=== PATIENT | female | born 1960 | race Caucasian/White ===

== ENCOUNTER → 2016-06-22 | Outpatient (CLI) | payer OTHER ==
[~2016-06-22] MED LIST: ATOR40TA PO; ESOM1CAP5 PO; NEXI40CA PO; SIMV80TA PO
--- NOTE | 2016-06-22 10:39 | REPMRS ---
Patient History The patient states she has not had a clinical breast exam in over a year. Patient is postmenopausal. No known family history of cancer. Took estrogen for 3 years. Digital Woman Screen Mammo: June 22, 2016 - Exam #: [id number] Bilateral CC and MLO view(s) were taken. Technologist: Marion Hernandez, Technologist Prior study comparison: June 10, 2015, digital woman screen mammo performed at [facility] to [facility]. July 16, 2013, digital woman screen mammo performed at [facility]. April 25, 2012, digital woman screen mammo performed at [facility] to [facility]. FINDINGS: There are scattered fibroglandular densities. There has been no change in the appearance of the mammogram from the prior studies. An area of asymmetric breast parenchymal density is again seen in the right breast unchanged from multiple prior studies. There is no interval development of dominant mass, architectural distortion, or clustered microcalcification suggestive of malignancy. ASSESSMENT: BI-RADS/ACR category 1 mammogram. Negative. Recommendation Routine screening mammogram in 1 year (for women over age 40). This mammogram was interpreted with the aid of an FDA-approved computer-aided dectection system. Electronically Signed By: Omari Chavez MD 06/22/16 1038
== END ==
LOC: M WHC 07:50
PROVIDERS: ATTEND Internal Medicine
DX: Z12.31 Encounter for screening mammogram for malignant neoplasm of breast (principal)

== ENCOUNTER 2016-06-28 10:12 | Emergency (ER) | payer OTHER ==
[~2016-06-28] VITALS: Ht 157.5 cm; Wt 90.3 kg
[2016-06-28] MEDS ORDERED: MULT1TAB10 PO (10:26)
[2016-06-28] MEDS ORDERED: ATOR40TA PO (10:26)
[2016-06-28] MEDS ORDERED: ASPIRIN 81 MG CHEW TABLET PO ONE (11:15)
[2016-06-28 11:21] LABS: ANION GAP 9 MEQ/L (8-16); BLOOD UREA NITROGEN 18 MG/DL (7-18); CALCIUM LEVEL 8.8 MG/DL (8.5-10.1); CARBON DIOXIDE LEVEL 26 MEQ/L (21-32); CHLORIDE LEVEL 107 MEQ/L (98-107); CREATININE FOR GFR 0.74 MG/DL (0.55-1.02); GLOMERULAR FILTRATION RATE > 60.0 (>51); GLUCOSE, FASTING 126 MG/DL (70-105); SODIUM LEVEL 142 MEQ/L (136-145)
[2016-06-28 11:23] LABS: BASO % 0.6 % (0.0-1.0); EOS # 0.3 K/mm3 (0.0-0.50); EOS % 3.3 % (0.0-3.0); LARGE UNSTAINED CELL # 0.2 K/mm3 (0.0-0.4); LARGE UNSTAINED CELL % 1.9 % (0.0-4.0); LYMPH # 2.3 K/mm3 (1.5-4.5); LYMPH % 25.2 % (24.0-44.0); MEAN CORPUSCULAR HEMOGLOBIN 32.6 pg (27.0-33.0); MEAN CORPUSCULAR HGB CONC 34.4 g/dl (32.0-36.5); MEAN CORPUSCULAR VOLUME 94.8 fl (80.0-96.0); MONO # 0.6 K/mm3 (0.0-0.8); MONO % 6.8 % (0.0-5.0); NEUTROPHILS # 5.2 K/mm3 (1.8-7.7); NEUTROPHILS % 62.2 % (36.0-66.0); PLATELET COUNT, AUTOMATED 280 k/mm3 (150-450); WHITE BLOOD COUNT 8.4 K/mm3 (4.0-10.0)
[2016-06-28 11:31] LABS: ALBUMIN 3.5 GM/DL (3.2-5.2); ALBUMIN/GLOBULIN RATIO 0.97 (1.00-1.93); BILIRUBIN,DIRECT 0.1 MG/DL (0.0-0.2); BILIRUBIN,TOTAL 0.3 MG/DL (0.2-1.0); FREE T4 0.83 NG/DL (0.76-1.46); TOTAL PROTEIN 7.1 GM/DL (6.4-8.2)
--- NOTE | 2016-06-28 11:56 | REP ---
Chest x-ray: Two views. History: Chest pain. Findings: EKG monitoring electrodes overlie the chest. No comparison views. Heart is mildly prominent in size with cardiothoracic ratio 13.6 cm over 25.9 cm. There is some right lower lobe plate-like atelectasis and right middle lobe plate-like atelectasis visible. The lungs are otherwise well inflated and clear. Pleural angles are sharp. The aorta is somewhat tortuous. No significant bony abnormality is seen. No infiltrate is seen. Impression: Right middle lobe and right lower lobe plate-like atelectasis. Mildly enlarged heart. Otherwise no active disease. Signed by Sean Chavez MD 06/28/2016 01:14 P
[2016-06-28 16:52] VITALS: BP 117/70
--- NOTE | 2016-06-28 20:33 | ECGEPIP ---
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
--- NOTE | 2016-06-28 20:42 | ECGEPIP ---
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
== END 2016-06-28 17:06 | disposition home or self-care (01) ==
LOC: M ED 11:07
DX: R07.9 Chest pain, unspecified (principal); E78.5 Hyperlipidemia, unspecified; K21.9 Gastro-esophageal reflux disease without esophagitis

== ENCOUNTER → 2018-06-02 | Outpatient (CLI) | payer BC ==
[~2018-06-02] MED LIST changes: -ATOR40TA PO; +ATOR40TA75 PO; +MULT1TAB10 PO; -SIMV80TA PO; +SIMV80TA13 PO
--- NOTE | 2018-06-02 12:10 | REP ---
Chest two views HISTORY: Cough Comparison: 06/28/2016 Linear density is present in the right middle lobe consistent with scar. The left lung is clear. The heart is normal in size. The pulmonary vasculature is normal in appearance. The bony structure is intact. IMPRESSION: Right middle lobe scarring. Electronically Signed by Renato Chavez MD 06/02/2018 12:01 P
== END ==
LOC: M WUC 10:49
PROVIDERS: ATTEND Internal Medicine
DX: J98.4 Other disorders of lung (principal); R05 Cough

== ENCOUNTER → 2018-06-20 | Outpatient (CLI) | payer BC ==
--- NOTE | 2018-06-20 10:44 | REPMRS ---
Patient History The patient states she has not had a clinical breast exam in over a year. Patient is postmenopausal. No known family history of cancer. Took estrogen for 3 years. Taking unspecified hormones for 1 month. Digital Woman Screen Mammo: June 20, 2018 - Exam #: [id number] Bilateral CC and MLO view(s) were taken. Technologist: Christine Diaz, Technologist Prior study comparison: June 22, 2016, digital woman screen mammo performed at [facility]. June 10, 2015, digital woman screen mammo performed at [facility] to [facility]. July 16, 2013, digital woman screen mammo performed at [facility] to [facility]. FINDINGS: There are scattered fibroglandular densities. There has been no change in the appearance of the mammogram from the prior studies. There is a mild amount of scattered fibroglandular density which is fairly symmetric. There is no interval development of dominant mass, architectural distortion, or clustered microcalcification suggestive of malignancy. 3-D tomosynthesis shows no additional findings. Assessment: BI-RADS/ACR category 1 mammogram. Negative Mammogram. Recommendation Routine screening mammogram of both breasts in 1 year (for women over age 40). This patient's Lifetime Breast Cancer RIsk is estimated at 7.2 %. This mammogram was interpreted with the aid of an FDA-approved computer-aided dectection system. Electronically Signed By: Omari Chavez MD 06/20/18 6908
== END ==
LOC: M WHC 07:53
PROVIDERS: ATTEND Internal Medicine
DX: Z12.31 Encounter for screening mammogram for malignant neoplasm of breast (principal); Z78.0 Asymptomatic menopausal state; Z92.23 Personal history of estrogen therapy; Z92.29 Personal history of other drug therapy

== ENCOUNTER → 2019-04-23 | Outpatient (CLI) | payer BC ==
[~2019-04-23] MED LIST changes: +LEVO75TA4; +NAPR-885; +OMEP-218
--- NOTE | 2019-04-23 16:41 | REP ---
Five views left knee: 04/23/2019. Indication: Left knee pain. Comparison: None. Findings: There is no acute fracture, subluxation or dislocation. There is narrowing of the medial and lateral compartments more pronounced laterally without significant femoral or tibial spurring. There is minimal spurring of the patella without significant patellofemoral compartment narrowing. No lytic or blastic lesions are present. There is no evidence of significant joint effusion. Impression: No acute osseous pathology of the left knee. Electronically Signed by Gideon Ni DO 04/23/2019 04:03 P
== END ==
LOC: M WUC 15:49
PROVIDERS: ATTEND Internal Medicine
DX: M25.562 Pain in left knee (principal)

== ENCOUNTER 2019-04-24 23:16 | Emergency (ER) | payer BC ==
[~2019-04-24] VITALS: Ht 157.5 cm; Wt 86.4 kg
[~2019-04-24 23:16] MED LIST changes: -LEVO75TA4; -NAPR-885; -OMEP-218
[2019-04-24] MEDS ORDERED: LEVO75TA4 (23:27)
[2019-04-24] MEDS ORDERED: OMEP-218 (23:27)
[2019-04-24] MEDS ORDERED: NAPR-885 (23:27)
--- NOTE | 2019-04-25 00:20 | REPVR ---
PROCEDURE INFORMATION: Exam: US Duplex Left Lower Extremity Veins, Limited Exam date and time: 04/24/2019 11:54 PM Age: 58 years old Clinical indication: Pain; Leg, upper; Left; Additional info: Pain and swelling TECHNIQUE: Imaging protocol: Real-time Duplex ultrasound of the Left Lower Extremity with 2-D humphrey scale, color Doppler flow and spectral waveform analysis with image documentation. Limited exam focused on the left lower extremity veins. COMPARISON: No relevant prior studies available. FINDINGS: Left deep veins: Unremarkable. The common femoral, femoral, proximal profunda femoral and popliteal veins are patent without thrombus. Normal Doppler waveforms. Normal compressibility and/or augmentation response. Left superficial veins: Unremarkable. Saphenofemoral junction is patent without thrombus. Soft tissues: Unremarkable. IMPRESSION: Negative left lower extremity venous duplex exam without evidence of deep venous thrombosis. Electronically signed by: Joaquin Raymond On 04/25/2019 00:19:36 AM
[2019-04-25 01:43] VITALS: BP 138/67
[2019-04-25] MEDS ORDERED: ACETAMINOPHEN 325 MG TAB PO ONE (01:45)
== END 2019-04-25 02:05 | disposition home or self-care (01) ==
LOC: M ED 23:16
DX: S89.92XA Unspecified injury of left lower leg, initial encounter (principal); X50.3XXA Overexertion from repetitive movements, initial encounter; Y92.9 Unspecified place or not applicable; Y93.B1 Activity, exercise machines primarily for muscle strengthening; Y99.9 Unspecified external cause status; E78.5 Hyperlipidemia, unspecified; K21.9 Gastro-esophageal reflux disease without esophagitis; Z79.899 Other long term (current) drug therapy; Z91.040 Latex allergy status

== ENCOUNTER → 2020-08-31 | Outpatient (CLI) | payer BC ==
[~2020-08-31] MED LIST changes: +LEVO75TA4; +NAPR-885; +OMEP-218
--- NOTE | 2020-08-31 16:49 | REPMRS ---
Patient History The patient states she has not had a clinical breast exam in over a year. Patient is postmenopausal. No known family history of cancer. Took estrogen for 4 years. Took unspecified hormones for 1 month. Patient states no breast complaints today. Patient has signed MRS History Sheet. Digital Woman Screen Mammo: August 31, 2020 - Exam #: [id number] Bilateral CC and MLO view(s) were taken. Technologist: Bela Joseph, [employer] Prior study comparison: June 20, 2018, bilateral digital woman screen mammo performed at [facility]. June 22, 2016, digital woman screen mammo performed at [facility]. FINDINGS: There are scattered fibroglandular densities. Screening. Digital screening (2D) mammography was performed bilaterally in the CC and MLO projections. Additionally, breast tomosynthesis (3D mammography) was performed bilaterally in the CC and MLO projections. Todays exam was compared to the prior exams. By history, the patient has no complaints of a palpable breast abnormality or other significant breast complaints. The breasts are unchanged in size and shape. There are no moises-soft tissue densities or spiculated masses. There is no internal architectural distortion. There are no suspicious moises-calcific clusters. Skin thickening or nipple retraction is not present. IMPRESSION: BI-RADS Category 2- Benign Findings. There is no evidence of malignant alteration of the breasts. Followup examination recommended in one year. The Volpara volumetric breast density category is B, there are scattered areas of fibroglandular density. This mammogram was read with the assistance of Oren [id number],an FDA approved computer aided detection system for mammography. The lifetime Tyrer-Cuzick score is 6.8 % Negative x-ray reports should not delay surgical consultation if a dominant or clinically suspicious mass is present. Not all breast cancers can be identified by mammography. Therefore, we recommend that you continue to perform regular breast self-examination and physical examination and then promptly contact your physician of any concerns or changes. Adenosis and dense breasts may obscure an underlying neoplasm. Assessment: BI-RADS/ACR category 2 mammogram. Benign Findings. Recommendation Routine screening mammogram of both breasts in 1 year. Electronically Signed By: Fam Child DO 08/31/20 [id number]
== END ==
LOC: M WHC 16:02
PROVIDERS: ATTEND Internal Medicine
DX: Z12.31 Encounter for screening mammogram for malignant neoplasm of breast (principal)

== ENCOUNTER → 2020-11-15 | Outpatient (CLI) | payer BC ==
--- NOTE | 2020-11-15 18:39 | REP ---
INDICATION: COUGH. COMPARISON: 06/02/2018, 06/28/2016. TECHNIQUE: Two views FINDINGS: The lungs are well inflated. There is some curvilinear scarring in the right middle lobe unchanged. No effusion, lateral pleural thickening, apical scar or pneumothorax. No dense consolidation, parenchymal nodule or mass. Heart is not enlarged. The aorta is tortuous but unchanged. Airway intact some mild levoconvex curve of the lower thoracic and upper lumbar spine. Lateral view shows the spine without compression deformity or destructive lesion. IMPRESSION: 1. Some linear and curvilinear scarring in the right middle lobe without acute cardiopulmonary change. Stable examination. <Electronically signed by Gamal Maria > 11/15/20 [id number]
== END ==
LOC: M WUC 15:37
PROVIDERS: ATTEND Internal Medicine
DX: R05 Cough (principal)

== ENCOUNTER → 2021-01-03 | Outpatient (CLI) | payer BC ==
[~2021-01-03] MED LIST changes: +ISOVUE-370 76% 100ML VIAL As Ordered ONE
--- NOTE | 2021-01-04 06:12 | REP ---
INDICATION: COUGH COMPARISON: Chest x-ray dated 11/15/2020 TECHNIQUE: Axial contrast enhanced images from the thoracic inlet to the upper abdomen with coronal and sagittal reformations using 75 ml Isovue 370 intravenous contrast material. This CT examination was performed using the following dose reduction techniques: Automated exposure control, adjustment of mA and/or kv according to the patient's size, and use of iterative reconstruction technique. FINDINGS: Lung heck are relatively well aerated. There is minimal platelike fibroatelectatic changes in the right middle lobe and linear scarring at the lingula and right base. No acute consolidation. No effusion. No pneumothorax. Tracheobronchial tree is patent. No adenopathy. Thoracic aorta, pulmonary vasculature, and heart/pericardium are normal. Surrounding musculoskeletal structures are intact and without acute process. Limited upper abdomen demonstrates normal bilateral adrenal glands along with hepatosteatosis and cholelithiasis. IMPRESSION: 1. Chronic appearing changes as described above. No acute mediastinal or pleuroparenchymal process. 2. Hepatosteatosis. Cholelithiasis. <Electronically signed by Alejo Jiménez > 01/04/21 0609
== END ==
LOC: M RAD 15:48
PROVIDERS: ATTEND Internal Medicine
DX: R05 Cough (principal); K76.0 Fatty (change of) liver, not elsewhere classified; K80.20 Calculus of gallbladder without cholecystitis without obstruction
CPT/HCPCS: 71260; Q9967

== ENCOUNTER → 2022-01-30 | Outpatient (CLI) | payer BC ==
[~2022-01-30] MED LIST changes: -ISOVUE-370 76% 100ML VIAL As Ordered ONE; +OMEP-173; -OMEP-218
== END ==
LOC: M LABSMTC 09:18
PROVIDERS: ATTEND Anesthesiology
DX: Z01.818 Encounter for other preprocedural examination (principal); Z11.52 Encounter for screening for COVID-19

== ENCOUNTER → 2022-02-01 | Outpatient (CLI) | payer BC ==
[~2022-02-01] MED LIST changes: -LEVO75TA4; +LEVO75TA4 PO; -OMEP-173; +OMEP-173 PO; +prevagen PO
== END ==
LOC: M LABSMTC 10:23
PROVIDERS: ATTEND Anesthesiology
DX: Z01.812 Encounter for preprocedural laboratory examination (principal); Z20.822 Contact with and (suspected) exposure to COVID-19

== ENCOUNTER 2022-02-05 09:11 | Day surgery (SDC) | payer BC ==
[~2022-02-05] VITALS: Ht 157.5 cm; Wt 93.0 kg
[~2022-02-05 09:11] MED LIST changes: +NS 1,000 ML IV ONE
[2022-02-05] MEDS ORDERED: LIDOCAINE 2% 100MG/5ML SDV (FOR ANES.) As Ordered ONE (10:32)
[2022-02-05] MEDS ORDERED: propofoL 200 MG/20 ML VIAL As Ordered ONE ×2 (10:32→10:49)
[2022-02-05 11:25] VITALS: BP 138/72
== END 2022-02-05 11:35 | disposition home or self-care (01) ==
LOC: M OPP 09:11
PROVIDERS: ATTEND Internal Medicine Gastroenterology
DX: Z12.11 Encounter for screening for malignant neoplasm of colon (principal); K64.0 First degree hemorrhoids; D12.6 Benign neoplasm of colon, unspecified; K62.1 Rectal polyp; K57.30 Diverticulosis of large intestine without perforation or abscess without bleeding; Z79.02 Long term (current) use of antithrombotics/antiplatelets; Z79.899 Other long term (current) drug therapy; Z91.040 Latex allergy status; E03.9 Hypothyroidism, unspecified; M13.80 Other specified arthritis, unspecified site; I72.0 Aneurysm of carotid artery

== ENCOUNTER → 2022-05-24 | Outpatient (CLI) | payer BC ==
[~2022-05-24] MED LIST changes: -NS 1,000 ML IV ONE
[2022-05-24 14:11] LABS: CORTISOL AM 10.6 UG/DL (4.3-22.4); ESTRADIOL < 19.0 PG/ML; FOLLICLE STIMULATING HORMONE 46.9 mIU/ML; LUTEINIZING HORMONE 17.1 mIU/ML; PROGESTERONE 0.21 NG/ML
[2022-05-28 17:08] LABS: ESTRONE SERUM 8 pg/mL (0-125); SEX HORMONE BINDING GLOBULIN 49.3 nmol/L (17.3-125.0); TESTOSTERONE FREE (DIRECT) 0.8 pg/mL (0.0-4.2)
== END ==
LOC: M WUC 10:44
PROVIDERS: ATTEND Obstetrics & Gynecology
DX: N95.1 Menopausal and female climacteric states (principal)

== ENCOUNTER → 2022-07-20 | Outpatient (CLI) | payer BC ==
[2022-07-20 20:20] LABS: FOLLICLE STIMULATING HORMONE 18.7 mIU/ML; LUTEINIZING HORMONE 8.6 mIU/ML; PROGESTERONE 0.21 NG/ML
[2022-07-20 20:21] LABS: ESTRADIOL 45.4 PG/ML
== END ==
LOC: M WUC 15:24
PROVIDERS: ATTEND Obstetrics & Gynecology
DX: N95.1 Menopausal and female climacteric states (principal); E34.9 Endocrine disorder, unspecified; R53.83 Other fatigue

== ENCOUNTER → 2022-09-03 | Outpatient (CLI) | payer BC | LOC: M WHC 08:08 | PROVIDERS: ATTEND Internal Medicine | DX: Z12.31 Encounter for screening mammogram for malignant neoplasm of breast (principal) ==

== ENCOUNTER → 2023-02-12 | Outpatient (CLI) | payer BC ==
[2023-02-12 13:20] LABS: HEMATOCRIT 45.1 % (36.0-47.0); HEMOGLOBIN 14.8 g/dl (12.0-15.5); MEAN CORPUSCULAR HEMOGLOBIN 31.8 pg (27.0-33.0); MEAN CORPUSCULAR HGB CONC 32.8 g/dl (32.0-36.5); MEAN CORPUSCULAR VOLUME 96.8 fl (80.0-96.0); PLATELET COUNT, AUTOMATED 287 10^3/uL (150-450); RED BLOOD COUNT 4.66 10^6/uL (4.00-5.40); WHITE BLOOD COUNT 10.6 10^3/uL (4.0-10.0)
[2023-02-12 13:43] LABS: HEMOGLOBIN A1c 6.1 % (4.0-6.0)
[2023-02-12 13:50] LABS: ALBUMIN 3.5 G/DL (3.2-5.2); ALKALINE PHOSPHATASE 114 U/L (46-116); ALT/SGPT < 9 U/L (7.0-40); AST/SGOT 15 U/L (<34); BILIRUBIN,TOTAL 0.4 MG/DL (0.3-1.2); BLOOD UREA NITROGEN 13 MG/DL (9-23); CALCIUM LEVEL 8.8 MG/DL (8.3-10.6); CARBON DIOXIDE LEVEL 28 MMOL/L (20-31); CHLORIDE LEVEL 102 MMOL/L (98-107); CHOLESTEROL LEVEL 162 MG/DL (<200); CHOLESTEROL RISK RATIO 3.72 (<5); CREATININE FOR GFR 0.72 MG/DL (0.55-1.30); GLOMERULAR FILTRATION RATE > 60.0 (>45); GLUCOSE, FASTING 174 MG/DL (74-106); HDL CHOLESTEROL 43.5 MG/DL (>40); LDL CHOLESTEROL 92.3 MG/DL (<100); NON-HDL-C 118.5 MG/DL; SODIUM LEVEL 137 MMOL/L (136-145); THYROID STIMULATING HORMONE 0.942 uIU/ML (0.55-4.78); TRIGLYCERIDES LEVEL 131 MG/DL (<150)
== END ==
LOC: M WUC 09:38
PROVIDERS: ATTEND Internal Medicine
DX: E03.9 Hypothyroidism, unspecified (principal); E78.5 Hyperlipidemia, unspecified; K21.9 Gastro-esophageal reflux disease without esophagitis; R73.01 Impaired fasting glucose; M54.9 Dorsalgia, unspecified; M41.84 Other forms of scoliosis, thoracic region

== ENCOUNTER → 2023-06-13 | Outpatient (CLI) | payer BC | LOC: M WUC 09:36 | PROVIDERS: ATTEND Internal Medicine | DX: M54.32 Sciatica, left side (principal) ==

== ENCOUNTER → 2023-06-18 | Outpatient (REF) | payer BC | LOC: M SFHCDERM 16:27 | PROVIDERS: ATTEND Physician Assistant | DX: C44.92 Squamous cell carcinoma of skin, unspecified (principal) ==

== ENCOUNTER → 2023-08-06 | Outpatient (CLI) | payer BC | LOC: M WUC 11:26 | PROVIDERS: ATTEND Internal Medicine | DX: R05.3 Chronic cough (principal) ==

== ENCOUNTER → 2023-10-03 | Outpatient (CLI) | payer BC ==
[~2023-10-03] MED LIST changes: +ESOM1CAP20 PO; -ESOM1CAP5 PO
== END ==
LOC: M WHC 08:06
PROVIDERS: ATTEND Internal Medicine
DX: Z12.31 Encounter for screening mammogram for malignant neoplasm of breast (principal)